=== PATIENT | male | born 1985 ===

== ENCOUNTER 2021-06-24 18:46 | Emergency (ER) | payer MEDICAID | END 2021-06-24 22:21 | disposition home or self-care (01) | LOC: JP.ED 18:46 | DX: F10.120 Alcohol abuse with intoxication, uncomplicated (principal); Y90.8 Blood alcohol level of 240 mg/100 ml or more | CPT/HCPCS: 36415; 70450; 80053; 80305-QW; 80307; 81001; 83690; 99282; 99284-25 ==